=== PATIENT | female | born 1985 | race Caucasian/White ===

== ENCOUNTER → 2017-08-17 | Outpatient (CLI) | payer BC | END | disposition home or self-care (01) | LOC: C.PAPS 12:08 | PROVIDERS: ATTEND Obstetrics & Gynecology | DX: Z01.419 Encounter for gynecological examination (general) (routine) without abnormal findings (principal); Z11.51 Encounter for screening for human papillomavirus (HPV) ==

== ENCOUNTER 2019-02-04 13:20 | Inpatient (IN) ==
[2019-02-04] MEDS ORDERED: OXYTOCIN 30 UNITS/500 ML BAG IV PRN (13:45)
--- NOTE | 2019-02-04 13:50 | History & Physical Report ---
Date of Service February 04, 2019 Assessment & Plan (1) Normal labor: active labor, likely mec stained fluid--unknown when ruptured. borderline BP and +1 protein in urine, will get labs. Epidural on demand. Anticipate . Will monitor closely. History of Present Illness Chief Complaint: contractions Primary Care Provider: NO PCP Patient is a 33yowf with iup at 37 5/7 weeks who presents to labor and delivery complaining of contractions. notes no lof/vb. +fm. complicated need for echo secondary to poor views on anatomy ultrasound (normal), rh negative. also complicated by persistent proteus positive urine. Always asymptomatic and w/u by urology negative. Hx of pcos. nl 2 hr gtt at 16 and 28 weeks. Recently had some borderline elevated pressures in the office. labs--A-/ab-/ri/rprnr/hepb-/hiv-/gc/ct-/cf/sma -/ panorama low risk/ gbs neg. Allergies Allergy/AdvReac Type Severity Reaction Status Date / Time No Known Drug Allergies Allergy Verified 01/30/19 13:24 Home Medications Home Medications Medication Instructions Recorded Confirmed Type pediatric multivitamin chewable 1 tab PO DAILY 11/29/18 02/04/19 History tablet Patient History Medical History Obesity PCOS (polycystic ovarian syndrome) History of irregular menstrual cycles Surgical History S/P wisdom tooth extraction Family History Mother Breast cancer, Onset Age: 46 Father Kidney stones Social History Preferred Language: Bhutanese Communication Ability: Effective Level Designer Required: No Beliefs That Will Affect Care: None marital status: Current Living Situation: Spouse current occupational status: employed current occupation: [employer] Other Information That Helps Us Care for You: No Feels Safe at Home: Yes Smoking Status: Never smoker Hx Alcohol Use: No Hx Substance Use: No Childhood Exposure to Second-Hand Smoke: No OB History g1--present [employer]ENTER [employer] History no abnl paps, no stds. Review of Systems All systems reviewed & are unremarkable except as noted in HPI & below Physical Exam Constitutional: WD/WN, vitals as above Gastrointestinal (Abdomen): obese, soft, nt, gravid Psychiatric: A+Ox3, euthymic affect Genitourinary: cx--4-5/100/-2, green tinged mucous on glove after exam, could feel membrane toco--difficult tracing efm--130s with mod variability, +accels, no decels Results & Data Vital Signs (Past 12 Hours) Vital Signs Temp Pulse Resp BP 02/04/19 13:42 117 H 145/104 H 02/04/19 13:28 36.7 C 99 H 20 138/93 Code Status & VTE Plan VTE Prophylaxis Plan VTE Prophylaxis will be ordered: No
[2019-02-04] MEDS: LACTATED RINGER'S 1,000 ML IV PRN ×3 (13:55→21:31)
[2019-02-04 14:08] LABS: Hematocrit (blood only) 36.2 % (37-47); Hemoglobin 12.8 g/dL (12.0-16.0); Mean Corpuscular Hemoglobin 29.6 pg (25-34); Mean Corpuscular Volume 83.8 fL (80-100); Mean Platelet Volume 11.6 fL (7.4-10.4); Platelet Count 173 K/uL (130-400); RDW Coefficient of Variation 13.7 % (11.5-14.5); RDW Standard Deviation 41.4 fL (36.4-46.3); Red Blood Count 4.32 M/uL (4.2-5.4); White Blood Count 11.02 K/uL (4.8-10.8)
[2019-02-04] MEDS ORDERED: ePHEDrine sulfate 50 MG/ML AMP ONE (14:12)
[2019-02-04] MEDS ORDERED: BUPIVACAINE 0.25% 30 ML VIAL ONE (14:12)
[2019-02-04] MEDS ORDERED: fentaNYL citrate 100 MCG/2 ML VIAL ONE (14:13)
[2019-02-04] MEDS ORDERED: fentaNYL 2MCG/ML ROPIV 1.25MG/ML 100 ML BAG EPI ONE (14:13)
[2019-02-04 14:22] LABS: Mean Corpuscular Hgb Conc 35.4 g/dL (32-36)
[2019-02-04 14:24] LABS: Albumin Level 2.5 gm/dl (3.4-5.0); BUN Creatinine Ratio 13.3 (10-20); Calcium 8.9 mg/dl (8.5-10.1); Creatinine Clr Calc Pharmacy 116.5 ml/min; Est GFR (African American) 118.4; Est GFR (Non-African American) 102.2; Potassium 4.3 mmol/L (3.5-5.1)
[2019-02-04 14:26] LABS: Albumin Globulin Ratio 0.6 (0.9-2); Bilirubin,Total 0.2 mg/dl (0.2-1); Total Protein 6.5 gm/dl (6.4-8.2)
--- NOTE | 2019-02-04 14:32 | Anesthesiology Consultation ---
Date of Service February 04, 2019 Assessment & Plan (1) Encounter for pre-operative examination: Chart Review Chart Review: Acceptable Risk for Labor Epidural Consults Requested none ASA ASA3 Proposed Anesthesia Anesthesia Type: Labor Epidural Risk / Benefits Reviewed With: PT / POA / Parent / Guardian, Accepts Plan and Informed Consent Obtained History Height/Weight Height: 5 ft 2 in Weight: 100.698 kg Allergies Allergy/AdvReac Type Severity Reaction Status Date / Time No Known Drug Allergies Allergy Verified 01/30/19 13:24 Medications Home Medications Medication Instructions Recorded Confirmed Last Taken pediatric multivitamin chewable 1 tab PO DAILY 11/29/18 02/04/19 02/03/19 12:00 tablet Active Medications Generic Name Dose Route Start Last Admin Trade Name Freq PRN Reason Stop Dose Admin Lactated Ringer's 1,000 mls @ 125 mls/hr 02/04/19 13:45 02/04/19 13:55 Lr IV 02/06/19 13:44 999 mls/hr .Q8H PRN Administration L&D Protocol Protocol Past Medical History Medical History Obesity PCOS (polycystic ovarian syndrome) History of irregular menstrual cycles Exercise / Class Metabolic Activity II 4-5 Yardwork/Stairs/Walk up hill Past Family History Family History Mother Breast cancer, Onset Age: 46 Father Kidney stones Past Surgical History Surgical History S/P wisdom tooth extraction Past Anesthesia History No Hx of Anesthesia Complications and No Family Hx of Anesthesia Complications History of PONV No Hx of PONV and No Hx of Motion Sickness Social History Smoking Status: Never smoker Hx Alcohol Use: No Hx Substance Use: No Physical Exam Vital Signs Last Vital Signs Temp 98.1 F 02/04/19 13:28 Pulse 99 H 02/04/19 14:29 Resp 20 02/04/19 13:28 BP 128/78 02/04/19 14:27 Pulse Ox 99 02/04/19 14:29 ENMT Mouth: no dentition abnormality Thyromental Distance: > or= 3.5 Finger Breadths Mallampati Class: II Neck normal visual inspection Respiratory normal respiratory effort Auscultation: lungs clear to auscultation bilaterally Cardiovascular Rate/Rhythm: regular rate and regular rhythm Testing Laboratory Results 02/04/19 13:55 02/04/19 13:55
[2019-02-04] MEDS ORDERED: fentaNYL 2MCG/ML ROPIV 1.25MG/ML 100 ML BAG EPI PRN (14:33)
[2019-02-04] MEDS ORDERED: NALBUPHINE HCL INJ 10 MG/ML AMP IV PRN (14:33)
[2019-02-04] MEDS ORDERED: DiphenhydrAMINE HCL 50 MG/ML VIAL IV PRN (14:33)
[2019-02-04] MEDS ORDERED: ePHEDrine sulfate 50 MG/ML AMP IV PRN (14:33)
[2019-02-04] MEDS ORDERED: NALOXONE HCL 0.4 MG/1 ML VIAL/CARP IV PRN (14:33)
[2019-02-04] MEDS ORDERED: NALOXONE HCL 1 MG in SODIUM CHLORIDE 0.9% 1000ML 1,000 ML IV PRN (14:33)
[2019-02-04] MEDS ORDERED: ONDANSETRON INJ 2 MG/ML 2 ML VIAL IV PRN (14:33)
--- NOTE | 2019-02-04 16:30 | Labor Progress Brief Note ---
Date of Service February 04, 2019 Subjective comfortable after epidural Assessment & Plan (1) Normal labor: labs were all normal. Blood pressures for the most part are ok, will have an occasional 150/90. no s/s of pet. Continue current management. Physical Exam Constitutional: WD/WN, vitals as above Psychiatric: A+Ox3, euthymic affect Genitourinary: cx--6-7/100/-2 arom--thin green mec toco--q3-5 efm--135 with mod variability, accels present Results & Data Vital Signs (Past 12 Hours) Vital Signs Temp Pulse Resp BP Pulse Ox 02/04/19 16:24 95 H 152/94 H 100 02/04/19 16:19 109 H 99 02/04/19 16:14 94 H 99 02/04/19 16:09 100 H 100 02/04/19 16:08 93 H 143/84 H 02/04/19 16:04 107 H 100 02/04/19 15:59 101 H 99 02/04/19 15:54 96 H 130/79 100 02/04/19 15:49 92 H 100 02/04/19 15:44 97 H 100 02/04/19 15:39 94 H 127/73 100 02/04/19 15:34 104 H 100 02/04/19 15:29 104 H 100 02/04/19 15:24 110 H 100 02/04/19 15:23 101 H 111/59 L 02/04/19 15:19 108 H 100 02/04/19 15:14 118 H 100 02/04/19 15:09 97 H 100 02/04/19 15:06 98 H 125/66 02/04/19 15:04 110 H 100 02/04/19 15:03 36.9 C 20 02/04/19 15:00 18 02/04/19 14:59 113 H 129/67 99 02/04/19 14:57 107 H 18 137/70 02/04/19 14:55 109 H 131/67 02/04/19 14:54 115 H 99 02/04/19 14:53 99 H 133/74 02/04/19 14:52 96 H 20 145/75 H 02/04/19 14:49 95 H 99 02/04/19 14:44 101 H 99 02/04/19 14:39 101 H 100 10/05/19 14:34 105 H 95 02/04/19 14:29 99 H 99 02/04/19 14:27 87 128/78 02/04/19 14:24 86 100 02/04/19 14:19 91 H 100 02/04/19 14:01 101 H 137/102 H 02/04/19 13:50 95 H 141/92 H 02/04/19 13:42 117 H 145/104 H 02/04/19 13:28 36.7 C 99 H 20 138/93
--- NOTE | 2019-02-04 20:20 | Labor Progress Brief Note ---
Date of Service February 04, 2019 Subjective comfortable, no pressure Assessment & Plan (1) Normal labor: labor down for a bit and then at 9 will empty bladder and start pushing. fetus category one and reassuring. Physical Exam Constitutional: WD/WN, vitals as above Psychiatric: A+Ox3, euthymic affect Genitourinary: cx--c/c/-1-0 toco--q2-3min efm--140s with mod variability, accels present, no decels Results & Data Vital Signs (Past 12 Hours) Vital Signs Temp Pulse Resp BP Pulse Ox 02/04/19 20:14 110 H 99 02/04/19 20:09 118 H 99 02/04/19 20:08 105 H 137/82 02/04/19 20:04 112 H 98 02/04/19 19:59 103 H 100 02/04/19 19:54 120 H 100 02/04/19 19:53 98 H 138/80 02/04/19 19:49 101 H 100 02/04/19 19:44 100 H 100 02/04/19 19:39 100 H 100 02/04/19 19:38 102 H 147/89 H 02/04/19 19:34 116 H 100 02/04/19 19:29 110 H 99 02/04/19 19:24 101 H 98 02/04/19 19:23 103 H 136/82 02/04/19 19:19 105 H 100 02/04/19 19:14 105 H 100 02/04/19 19:09 107 H 100 02/04/19 19:08 121 H 133/91 02/04/19 19:04 99 H 100 02/04/19 18:59 105 H 100 02/04/19 18:55 37.1 C 16 02/04/19 18:54 106 H 100 02/04/19 18:53 110 H 144/88 H 02/04/19 18:49 97 H 99 02/04/19 18:44 88 100 02/04/19 18:39 92 H 100 02/04/19 18:38 95 H 125/63 02/04/19 18:34 94 H 100 02/04/19 18:29 92 H 100 02/04/19 18:27 99 H 89 L 02/04/19 18:24 93 H 100 02/04/19 18:23 86 120/63 02/04/19 18:19 95 H 100 02/04/19 18:14 97 H 100 02/04/19 18:09 94 H 100 02/04/19 18:08 86 118/62 02/04/19 18:04 97 H 100 02/04/19 17:59 95 H 100 02/04/19 17:54 105 H 117/61 100 02/04/19 17:49 89 100 02/04/19 17:44 91 H 100 02/04/19 17:39 93 H 99 02/04/19 17:38 86 124/64 02/04/19 17:34 89 100 02/04/19 17:29 93 H 99 02/04/19 17:24 91 H 132/68 99 02/04/19 17:19 91 H 99 02/04/19 17:14 93 H 100 02/04/19 17:09 85 99 02/04/19 17:08 85 144/91 H 02/04/19 17:07 37.3 C 20 02/04/19 17:04 99 H 100 02/04/19 16:59 87 99 02/04/19 16:54 91 H 131/70 100 02/04/19 16:49 93 H 100 02/04/19 16:44 92 H 100 02/04/19 16:39 95 H 100 02/04/19 16:38 87 154/93 H 02/04/19 16:34 92 H 100 02/04/19 16:29 89 100 02/04/19 16:24 95 H 152/94 H 100 02/04/19 16:19 109 H 99 02/04/19 16:14 94 H 99 02/04/19 16:09 100 H 100 02/04/19 16:08 93 H 143/84 H 02/04/19 16:04 107 H 100 02/04/19 15:59 101 H 99 02/04/19 15:54 96 H 130/79 100 02/04/19 15:49 92 H 100 02/04/19 15:44 97 H 100 02/04/19 15:39 94 H 127/73 100 02/04/19 15:34 104 H 100 02/04/19 15:29 104 H 100 02/04/19 15:24 110 H 100 02/04/19 15:23 101 H 111/59 L 02/04/19 15:19 108 H 100 02/04/19 15:14 118 H 100 02/04/19 15:09 97 H 100 02/04/19 15:06 98 H 125/66 02/04/19 15:04 110 H 100 02/04/19 15:03 36.9 C 20 02/04/19 15:00 18 02/04/19 14:59 113 H 129/67 99 02/04/19 14:57 107 H 18 137/70 02/04/19 14:55 109 H 131/67 02/04/19 14:54 115 H 99 02/04/19 14:53 99 H 133/74 02/04/19 14:52 96 H 20 145/75 H 02/04/19 14:49 95 H 99 02/04/19 14:44 101 H 99 02/04/19 14:39 101 H 100 02/04/19 14:34 105 H 95 02/04/19 14:29 99 H 99 02/04/19 14:27 87 128/78 02/04/19 14:24 86 100 02/04/19 14:19 91 H 100 02/04/19 14:01 101 H 137/102 H 02/04/19 13:50 95 H 141/92 H 02/04/19 13:42 117 H 145/104 H 02/04/19 13:28 36.7 C 99 H 20 138/93
--- NOTE | 2019-02-04 22:57 | Communication Note ---
Date of Service: February 04, 2019 Multiple attempts at pushing. With first attempt had n/v and diarrhea. Resolved this and then attempted pushing again. FSE placed to better monitor th e fetus. AFter emesis and probably about 2 hours of laboring down, baby did not descend in the pelvis at all. With again attempting pushing, fht down in the 70s with slow return to baseline. Already have mec even prior to pushing. Pelvis feels small. I think this is going to be FTD and associated nrfht and have recommended proceeding with c/s. They are in agreement. fht now in 1700s with mod variability, and spontaneous accels. When not pushing, variables/decrease in HR has resolved. r/b/ of the c/s discussed with the patient including anesthesia, bleeding, transfusion, damage to surrounding structures, need for further surgery, injury to the baby. Questions asked and answered. Consent reviewed and sigend.
[2019-02-04] MEDS ORDERED: LACTATED RINGER'S 1,000 ML IV SCH ×2 (23:00→23:52)
--- NOTE | 2019-02-04 23:06 | Anesthesiology Consultation ---
Date of Service February 04, 2019 Assessment & Plan (1) Encounter for pre-operative examination: Chart Review Chart Review: Acceptable Risk for Surgery and Patient NOT seen in Pre Admission Testing Consults Requested none ASA [id number] Proposed Anesthesia Anesthesia Type: Labor Epidural (To be converted for emergent CS) Risk / Benefits Reviewed With: PT / POA / Parent / Guardian, Accepts Plan and Informed Consent Obtained History Surgery Operation Date: 02/04/19 22:50 Proposed Procedures p Section in LD - Ольга Blakely MD, FACOG Height/Weight Height: 5 ft 2 in Weight: 100.698 kg Allergies Allergy/AdvReac Type Severity Reaction Status Date / Time No Known Drug Allergies Allergy Verified 01/30/19 13:24 Medications Home Medications Medication Instructions Recorded Confirmed Last Taken pediatric multivitamin chewable 1 tab PO DAILY 11/29/18 02/04/19 02/03/19 12:00 tablet Active Medications Generic Name Dose Route Start Last Admin Trade Name Freq PRN Reason Stop Dose Admin Lactated Ringer's 1,000 mls @ 125 mls/hr 02/04/19 13:45 02/04/19 22:30 Lr IV 02/06/19 13:44 125 mls/hr .Q8H PRN Infusion L&D Protocol Protocol Ondansetron HCl 4 mg 02/04/19 14:33 02/04/19 22:06 Zofran IV 02/05/19 14:32 4 mg Q6H PRN Administration Nausea And Vomiting NPO Date Last Intake of Fluids: 02/04/19 Time Last Intake of Fluids: 21:00 Date Last Intake of Solids: 02/04/19 Time Last Intake of Solids: 07:00 Past Medical History Medical History Obesity PCOS (polycystic ovarian syndrome) History of irregular menstrual cycles Exercise / Class Metabolic Activity II 4-5 Yardwork/Stairs/Walk up hill Past Family History Family History Mother Breast cancer, Onset Age: 46 Father Kidney stones Past Surgical History Surgical History S/P wisdom tooth extraction Past Anesthesia History No Hx of Anesthesia Complications and No Family Hx of Anesthesia Complications History of PONV No Hx of PONV and No Hx of Motion Sickness Social History Smoking Status: Never smoker Hx Alcohol Use: No Hx Substance Use: No Physical Exam Vital Signs Last Vital Signs Temp 37.3 C 02/04/19 21:00 Pulse 122 H 02/04/19 23:00 Resp 16 02/04/19 21:00 BP 125/65 02/04/19 22:54 Pulse Ox 100 02/04/19 23:00 Constitutional + obese gravid uterus ENMT Mouth: no TMJ abnormality, no dentition abnormality and oral opening not small Thyromental Distance: > or= 3.5 Finger Breadths Mallampati Class: III Neck normal visual inspection; neck extension not limited Respiratory normal respiratory effort Auscultation: lungs clear to auscultation bilaterally Cardiovascular Rate/Rhythm: regular rate and regular rhythm Heart Sounds: no murmur Neurologic moves all extremities Psychiatric Orientation: alert and oriented x 3 Testing Laboratory Results 02/04/19 13:55 02/04/19 13:55
[2019-02-04] MEDS ORDERED: CITRIC ACID/SODIUM CITRATE 15 ML UDC PO ONE (23:15)
[2019-02-04] MEDS ORDERED: MoRPHine SULFATE PF 1 MG/ML 10 ML AMP/VIAL ONE (23:27)
[2019-02-04] MEDS ORDERED: LIDOCAINE/EPINEPHRINE 2% 1:200,000 20 ML SDV ONE (23:29)
[2019-02-04] MEDS ORDERED: OXYTOCIN 10 UNITS/ML VIAL ONE (23:29)
[2019-02-04] MEDS ORDERED: CEFAZOLIN 3000MG 65 ML IV ONE (23:30)
[2019-02-05] MEDS ORDERED: ONDANSETRON INJ 2 MG/ML 2 ML VIAL ONE (00:09)
--- NOTE | 2019-02-05 00:29 | Post Operative Brief Note ---
PG Immediate Post Op with CF Date of Surgery February 05, 2019 Pre & Post Diagnosis Operation Date: 02/04/19 22:50 Pre-Op Diagnosis: 1. IUP at 37.5 weeks gestation 2. Thin meconium fluid 3. Non reassuring heart tones 4. Failure to descend Post-Op Diagnosis: Same Delivery of live female child at 2345 Procedure Operation Date: 02/04/19 22:50 Actual Procedures p Primary low transverse Section in LD(Bilateral) - Ольга Blakely MD, FACOG Surgeon Ольга Blakely MD, FACOG Member Of Technical Staff Tayla Glover RN Estimated Blood Loss 800 Findings Consistent with Post-Op Diagnosis Specimens Specimen Description: 1. Placenta- exam 2. Cord blood
[2019-02-05] MEDS ORDERED: ePHEDrine sulfate 50 MG/ML AMP IV PRN (00:36)
[2019-02-05] MEDS ORDERED: DiphenhydrAMINE HCL 50 MG/ML VIAL IV PRN ×2 (00:36→18:36)
[2019-02-05] MEDS ORDERED: MEPERIDINE HCL 25 MG/ML CARP IV PRN (00:36)
[2019-02-05] MEDS ORDERED: MoRPHine SULFATE PF 1 MG/ML 10 ML AMP/VIAL INT SPINAL ONE (00:36)
[2019-02-05] MEDS ORDERED: LACTATED RINGER'S 500 ML IV PRN (00:36)
[2019-02-05] MEDS ORDERED: NALOXONE HCL 0.4 MG/1 ML VIAL/CARP IV PRN (00:36)
[2019-02-05] MEDS ORDERED: NALBUPHINE HCL INJ 10 MG/ML AMP IV PRN (00:36)
[2019-02-05] MEDS ORDERED: NALOXONE HCL 1 MG in SODIUM CHLORIDE 0.9% 1000ML 1,000 ML IV PRN (00:36)
[2019-02-05] MEDS ORDERED: NALOXONE HCL 0.08 MG in SYRINGE 1.8 ML IV PRN (00:36)
[2019-02-05] MEDS ORDERED: SODIUM CHLORIDE 0.9% 1000ML 1,000 ML IV SCH (00:45)
[2019-02-05] MEDS ORDERED: NO NARCOTICS OR SEDATIVES SCH (00:45)
--- NOTE | 2019-02-05 00:46 | Anesthesiology Progress Note ---
Date of Service February 05, 2019 Anesthesia Post Procedure Vital Signs Vital Signs: Temp Pulse Resp BP Pulse Ox 02/05/19 00:44 84 99 02/05/19 00:41 92 H 99/56 L 02/05/19 00:39 100 H 99 02/05/19 00:35 95 H 101/49 L 02/05/19 00:34 98 H 99 02/04/19 23:15 107 H 100 02/04/19 23:10 110 H 100 02/04/19 23:09 110 H 149/95 H 02/04/19 23:05 126 H 100 02/04/19 23:00 100.0 F H 122 H 18 100 02/04/19 22:55 122 H 100 02/04/19 22:54 111 H 125/65 02/04/19 22:50 113 H 100 02/04/19 22:45 113 H 99 02/04/19 22:40 125 H 129/78 100 02/04/19 22:35 109 H 99 02/04/19 22:29 127 H 99 02/04/19 22:25 111 H 149/74 H 02/04/19 22:24 107 H 98 02/04/19 22:20 137 H 93 02/04/19 22:19 115 H 98 02/04/19 22:14 118 H 95 02/04/19 22:11 120 H 90 02/04/19 22:09 110 H 99 02/04/19 22:08 106 H 147/86 H 02/04/19 22:04 116 H 98 02/04/19 21:59 132 H 98 02/04/19 21:54 129 H 99 02/04/19 21:49 113 H 100 02/04/19 21:44 111 H 100 02/04/19 21:42 117 H 88 L 02/04/19 21:39 124 H 100 02/04/19 21:38 107 H 119/91 02/04/19 21:34 119 H 95 02/04/19 21:31 111 H 91 02/04/19 21:29 143 H 93 02/04/19 21:25 147 H 87 L 02/04/19 21:24 118 H 99 02/04/19 21:23 111 H 145/96 H 02/04/19 21:19 111 H 100 02/04/19 21:14 111 H 100 02/04/19 21:09 128 H 100 02/04/19 21:08 100 H 140/84 02/04/19 21:04 107 H 98 02/04/19 21:00 99.1 F 16 02/04/19 20:59 105 H 98 02/04/19 20:54 110 H 99 02/04/19 20:53 103 H 141/85 H 02/04/19 20:49 104 H 99 02/04/19 20:44 113 H 99 02/04/19 20:39 117 H 137/83 99 02/04/19 20:34 105 H 98 02/04/19 20:29 109 H 99 02/04/19 20:24 118 H 132/76 99 02/04/19 20:19 113 H 100 02/04/19 20:14 110 H 99 02/04/19 20:09 118 H 99 02/04/19 20:08 105 H 137/82 02/04/19 20:04 112 H 98 02/04/19 19:59 103 H 16 100 02/04/19 19:54 120 H 100 02/04/19 19:53 98 H 138/80 02/04/19 19:49 101 H 100 02/04/19 19:44 100 H 100 02/04/19 19:39 100 H 100 02/04/19 19:38 102 H 147/89 H 02/04/19 19:34 116 H 100 02/04/19 19:29 110 H 99 02/04/19 19:24 101 H 98 02/04/19 19:23 103 H 136/82 02/04/19 19:19 105 H 100 02/04/19 19:14 105 H 100 02/04/19 19:09 107 H 100 02/04/19 19:08 121 H 133/91 02/04/19 19:04 99 H 100 02/04/19 18:59 105 H 100 02/04/19 18:55 98.8 F 16 02/04/19 18:54 106 H 100 02/04/19 18:53 110 H 144/88 H 02/04/19 18:49 97 H 99 02/04/19 18:44 88 100 02/04/19 18:39 92 H 100 02/04/19 18:38 95 H 125/63 02/04/19 18:34 94 H 100 10/05/19 18:29 92 H 100 02/04/19 18:27 99 H 89 L 02/04/19 18:24 93 H 100 02/04/19 18:23 86 120/63 02/04/19 18:19 95 H 100 02/04/19 18:14 97 H 100 02/04/19 18:09 94 H 100 02/04/19 18:08 86 118/62 02/04/19 18:04 97 H 100 02/04/19 17:59 95 H 16 100 02/04/19 17:54 105 H 117/61 100 02/04/19 17:49 89 100 02/04/19 17:44 91 H 100 02/04/19 17:39 93 H 99 02/04/19 17:38 86 124/64 02/04/19 17:34 89 100 02/04/19 17:29 93 H 99 02/04/19 17:24 91 H 132/68 99 02/04/19 17:19 91 H 99 02/04/19 17:14 93 H 100 02/04/19 17:09 85 99 02/04/19 17:08 85 144/91 H 02/04/19 17:07 99.1 F 20 02/04/19 17:04 99 H 100 02/04/19 16:59 87 99 02/04/19 16:54 91 H 131/70 100 02/04/19 16:49 93 H 100 02/04/19 16:44 92 H 100 02/04/19 16:39 95 H 100 02/04/19 16:38 87 154/93 H 02/04/19 16:34 92 H 100 02/04/19 16:29 89 100 02/04/19 16:24 95 H 152/94 H 100 02/04/19 16:19 109 H 99 02/04/19 16:14 94 H 99 02/04/19 16:09 100 H 100 02/04/19 16:08 93 H 143/84 H 02/04/19 16:04 107 H 100 02/04/19 15:59 101 H 16 99 02/04/19 15:54 96 H 130/79 100 02/04/19 15:49 92 H 100 02/04/19 15:44 97 H 100 02/04/19 15:39 94 H 127/73 100 02/04/19 15:34 104 H 100 02/04/19 15:29 104 H 100 02/04/19 15:24 110 H 100 02/04/19 15:23 101 H 111/59 L 02/04/19 15:19 108 H 100 02/04/19 15:14 118 H 100 02/04/19 15:09 97 H 100 02/04/19 15:06 98 H 125/66 02/04/19 15:04 110 H 100 02/04/19 15:03 98.4 F 20 02/04/19 15:00 18 02/04/19 14:59 113 H 129/67 99 02/04/19 14:57 107 H 18 137/70 02/04/19 14:55 109 H 131/67 02/04/19 14:54 115 H 99 02/04/19 14:53 99 H 133/74 02/04/19 14:52 96 H 20 145/75 H 02/04/19 14:49 95 H 99 02/04/19 14:44 101 H 99 02/04/19 14:39 101 H 100 02/04/19 14:34 105 H 95 02/04/19 14:29 99 H 99 02/04/19 14:27 87 128/78 02/04/19 14:24 86 100 02/04/19 14:19 91 H 100 02/04/19 14:01 101 H 137/102 H 02/04/19 13:50 95 H 141/92 H 02/04/19 13:42 117 H 145/104 H 02/04/19 13:28 98.1 F 99 H 20 138/93 Pain Intensity Back: Pain Intensity: 5 Transfer of Care Handoff Completed per policy Notes Mental Status: alert / awake / arousable and participated in evaluation Patient Amnestic to Procedure: Yes Nausea / Vomiting: adequately controlled Pain: adequately controlled Airway Patency, RR, SpO2: stable & adequate BP & HR: stable & adequate Hydration State: stable & adequate Anesthetic Complications: no major complications apparent and Pt Satisfied with anesthetic care
[2019-02-05] MEDS ORDERED: LACTATED RINGER'S 1,000 ML IV SCH (01:12)
[2019-02-05] MEDS ORDERED: BENZOCAINE 20% AER SPR 82.5 GM CAN EXT PRN (01:12)
[2019-02-05] MEDS ORDERED: MAGNESIUM HYDROXIDE SUSP 30 ML UDC PO PRN (01:12)
[2019-02-05] MEDS ORDERED: DIPHTHERIA/TETANUS/PERTUSSIS 0.5 ML SYR/VIAL IM ONE (01:12)
[2019-02-05] MEDS ORDERED: SENNA 8.6 MG TAB PO PRN (01:12)
[2019-02-05] MEDS ORDERED: SUPERCREAM 0.870% 15 GM JAR EXT PRN (01:12)
[2019-02-05] MEDS ORDERED: HYDROCORTISONE ACETATE 25 MG SUPP PR PRN (01:12)
[2019-02-05] MEDS: OXYTOCIN 20 UNITS in LACTATED RINGER'S 1,000 ML IV SCH ×2 (01:33→09:47)
[2019-02-05] MEDS: KETOROLAC 30 MG/ML VIAL IV PRN ×2 (01:43→16:59)
--- NOTE | 2019-02-05 02:40 | Operative Report ---
DATE OF OPERATION: 02/04/2019 PREOPERATIVE DIAGNOSES: 1. Intrauterine at 37 and 5/7 weeks. 2. Thin meconium. 3. Nonreassuring heart testing. 4. Failure to descend. POSTOPERATIVE DIAGNOSES: 1. Intrauterine at 37 and 5/7 weeks. 2. Thin meconium. 3. Nonreassuring heart testing. 4. Failure to descend. PROCEDURE: Primary low transverse section. SURGEON: Ольга Blakely MD TECHNOLOGY APPLICATIONS TEACHER: Tayla Glover RN ANESTHESIA: Epidural. ESTIMATED BLOOD LOSS: 800 mL. FLUIDS: 1800 mL. URINE OUTPUT: 100 mL of concentrated dark urine drained from the bladder at the end of the procedure. INDICATIONS: This patient is a 1, para 0 who presented at 37 and 5/7 weeks with spontaneous rupture of membranes in active labor. There was thin green meconium noted. She eventually progressed to complete-complete and -1 to 0 station. She pushed, but the baby did not tolerate pushing. FINDINGS: Viable female in occiput anterior presentation, wedged into the pelvis. Apgars 9 and 9. Normal uterus, tubes and ovaries were noted bilaterally. COMPLICATIONS: None. DRAINS: Power. DISPOSITION: To recovery room in a stable condition. DESCRIPTION OF PROCEDURE: The patient was taken to the operating room where she was identified verbally and by bracelet. She was transferred to the operating table and placed in dorsal supine position with a leftward tilt. A Power catheter has already been placed. Her epidural was dosed up. She was prepped and draped in normal sterile fashion. Her anesthetic was tested and found to be adequate. A time-out was held, identifying correct patient, procedure, positioning and preoperative antibiotic. There were no concerns. A Pfannenstiel skin incision was made with a knife and taken down to the underlying layer of fascia with the knife and Bovie electrocautery. Bleeding was attended to with Bovie electrocautery. The fascia was incised in the midline with a knife and taken out laterally with scissors. The superior edge of the fascial incision was grasped, elevated and the underlying layer of rectus muscle was taken off bluntly and with scissors. In a similar fashion, the inferior edge of the fascial incision was grasped, elevated and the underlying layer of rectus muscle was taken off bluntly and with scissors. Bleeding of the rectus muscles was attended to with Bovie electrocautery. The rectus muscles were bluntly in the midline. The peritoneum was entered bluntly. This was taken superiorly and inferiorly with good visualization of the bladder sharply with scissors and then stretched with the wooling machine operator's fingers. We tried to place an Didier self-retaining retractor into the abdomen, but it kept popping out so bladder blade was placed. The vesicouterine peritoneum was identified, incised with scissors, taken out laterally with scissors and the bladder flap was created digitally. The bladder blade was replaced. Hysterotomy incision was made with the knife. This was entered with a snap with a thick green meconium noted. The wooling machine operator's hand was gently placed into the uterus. The head was wedged deep into the pelvis, but I was able to lift the baby up and through the hysterotomy incision. The nose and mouth were bulb suctioned. There was no nuchal cord. The rest of the infant was then delivered without difficulty. The immediately cried. The nose and mouth were bulb suctioned. The cord was clamped and cut. The infant was handed off to waiting sand temperer for drying and attention. Cord blood and gases were obtained. The placenta was manually extracted. The uterus was exteriorized and cleared of all clot and debris with moistened laparotomy sponges. The hysterotomy incision was finally identified after mistakenly pulling the external os up through the incision. The wooling machine operator's hand was placed into the uterus and the cervix was reduced and then the lower edge of the low transverse incision was identified with T clamps. The incision was then repaired in 2 layers, the first in a running locked layer and the second in an imbricating layer. Hemostasis was then noted to be good. The posterior cul-de-sac was cleared of all clot and debris. The hysterotomy incision was again inspected and found to be hemostatic. The uterus was reanteriorized. The hysterotomy incision was again inspected and found to be hemostatic. Some bleeding edges were attended to with Bovie electrocautery. The muscles were then reapproximated in the midline using interrupted sutures of 0 Vicryl. The fascia was reapproximated starting at the edges and meeting in the midline with 0 Vicryl. The subcuticular tissue was copiously irrigated. Bleeding was attended to with Bovie electrocautery. Several horizontal mattress sutures of 2-0 plain gut suture were used to close the space and the skin was closed with 4-0 subcuticular stitch of Vicryl. All sponge, lap and needle counts were correct x2. The patient tolerated the procedure well and was taken to recovery room in a stable condition. I attest to the content of the Intraoperative Record and any orders documented therein. Any exceptions are noted below. MTDD
[2019-02-05 06:38] LABS: Basophils # (auto) 0.01 K/uL (0-0.2); Basophils % (auto) 0.1 %; Hematocrit (blood only) 30.6 % (37-47); Hemoglobin 10.4 g/dL (12.0-16.0); Immature Granulocytes # (auto) 0.04 K/uL (0.00-0.02); Immature Granulocytes % (auto) 0.3 %; Lymphocytes # (auto) 1.37 K/uL (1.2-3.4); Lymphocytes % (auto) 8.6 %; Mean Corpuscular Hemoglobin 28.7 pg (25-34); Mean Corpuscular Volume 84.5 fL (80-100); Mean Platelet Volume 11.9 fL (7.4-10.4); Monocytes # (auto) 1.46 K/uL (0.11-0.59); Monocytes % (auto) 9.2 %; Neutrophils # (auto) 13.05 K/uL (1.4-6.5); Neutrophils % (auto) 81.8 %; Platelet Count 158 K/uL (130-400); RDW Coefficient of Variation 13.9 % (11.5-14.5); RDW Standard Deviation 42.4 fL (36.4-46.3); Red Blood Count 3.62 M/uL (4.2-5.4); White Blood Count 15.93 K/uL (4.8-10.8)
[2019-02-05] MEDS: DOCUSATE SODIUM 100 MG CAP PO SCH ×2 (08:44→20:11)
[2019-02-05] MEDS: SIMETHICONE 80 MG CHEW PO SCH ×4 (08:44→20:11)
[2019-02-05] MEDS: PRENATAL VITAMIN 1 TAB PO SCH (08:44)
[2019-02-05] MEDS: FERROUS SULFATE 325 MG TAB PO SCH (08:46)
[2019-02-05] MEDS ORDERED: PROMETHAZINE HCL 25 MG in SODIUM CHLORIDE 0.9% 50 ML IV PRN (18:36)
[2019-02-05] MEDS ORDERED: DC INTRASPINAL MORPHINE SCH (18:36)
[2019-02-05] MEDS ORDERED: OXYCODONE/ACETAMINOPHEN 5mg/325mg TAB PO PRN (18:36)
[2019-02-05] MEDS ORDERED: KETOROLAC 30 MG/ML VIAL IV PRN (18:36)
[2019-02-05] MEDS ORDERED: ONDANSETRON INJ 2 MG/ML 2 ML VIAL IV PRN (18:36)
[2019-02-05] MEDS ORDERED: MEPERIDINE HCL 50 MG/ML CARP IV PRN (18:36)
[2019-02-06] MEDS: IBUPROFEN 600 MG TAB PO PRN ×3 (01:16→13:30)
--- NOTE | 2019-02-06 06:14 | Obstetrical Progress Note ---
Date of Service February 06, 2019 Assessment & Plan (1) : 33 yo s/p C/S @ 37.5 wks -POD# 1 - GBS negative, Blood Type A- - Feels well today. Eating well, voiding well, ambulating well. - Pain well controlled w/ Motrin. - Routine post operative care - After discharge will have [address] Blakely. Supervising Physician Co-Signing Physician Notes Resident Physician Supervision Note: I interviewed and examined the patient. Discussed with Dr. Linn and agree with findings and plan as documented in the note. Any exceptions or clarifications are listed here: Doing well. Continue routine postop day 1 care. Documented By: Ольга Blakely MD, FACOG Subjective Doing well this morning with no questions or concerns. Review of Systems Review of Systems: Denies fever, chills, sweats Denies shortness of breath, difficulty breathing, chest pain, palpitations, chest pressure. Denies breast pain. Denies dysuria. Denies headache. Physical Exam Physical Exam: General: Alert, oriented. No acute distress. Cardiac: Regular rate and rhythm, no murmurs/rubs/gallops. Respiratory: Clear to auscultation anterior and posteriorly, no wheezes /rales/rhonchi. No increased work of breathing. Symmetrical chest rise. No respiratory distress. Abdomen: Soft, nontender, nondistended. Bowel sounds present. Uterus: Uterine fundus firm, at the umbilicus. Lower Extremities: No lower extremity edema or swelling. No deep calf pain. Sanchez's negative bilaterally. surgical bandage intact, clean, dry. Results & Data Vital Signs (Past 12 Hours) Vital Signs Temp Pulse Resp BP Pulse Ox 02/05/19 23:42 37.1 C 100 H 18 133/87 97 02/05/19 19:44 36.9 C 101 H 18 127/81 97 PG Care Time/CCT Total # of Minutes Spent Total Time Spent with Patient: Total time spent is greater than 50% in coordination of care (as documented) at patient's floor/unit and/or counseling patient: Resident Activity Tracking Resident Involvement: Resident Care Provided Care Provided: Adult Hospital Medicine
[2019-02-06 06:36] LABS: Hematocrit (blood only) 30.4 % (37-47); Hemoglobin 10.3 g/dL (12.0-16.0)
[2019-02-06] MEDS: SIMETHICONE 80 MG CHEW PO SCH ×3 (09:27→20:58)
[2019-02-06] MEDS: DOCUSATE SODIUM 100 MG CAP PO SCH ×2 (09:27→20:58)
[2019-02-06] MEDS: PRENATAL VITAMIN 1 TAB PO SCH (09:27)
[2019-02-06] MEDS: FERROUS SULFATE 325 MG TAB PO SCH (09:28)
[2019-02-06] MEDS ORDERED: bisacodyL 5 MG TABEC PO SCH (20:00)
[2019-02-07] MEDS: IBUPROFEN 600 MG TAB PO PRN ×3 (02:47→18:04)
--- NOTE | 2019-02-07 05:56 | Obstetrical Progress Note ---
Date of Service February 07, 2019 Assessment & Plan (1) : 33 yo s/p C/S @ 37.5 wks -POD# 3 - GBS negative, Blood Type A- - Feels well today. Eating well, voiding well, ambulating well. - Pain well controlled w/ Motrin. - Routine post operative care - After discharge will have [address] Blakely. Supervising Physician Co-Signing Physician Notes I have reviewed the resident's note and examined the patient myself, and agree with the note above. Subjective Doing well this morning, she had no questions this morning. She said that she w ould like to stay one more night if possible to feel more comfortable. Review of Systems Review of Systems: Denies fever, chills, sweats Denies shortness of breath, difficulty breathing, chest pain, palpitations, chest pressure. Denies breast pain. Denies dysuria. Denies headache. Physical Exam Physical Exam: General: Alert, oriented. No acute distress. Cardiac: Regular rate and rhythm, no murmurs/rubs/gallops. Respiratory: Clear to auscultation anterior and posteriorly, no wheezes/rales/rhonchi. No increased work of breathing. Symmetrical chest rise. No respiratory distress. Abdomen: Soft, nontender, nondistended. Bowel sounds present. Uterus: Uterine fundus firm, palpable 1 cm below umbilicus. Lower Extremities: No lower extremity edema or swelling. No deep calf pain. Sanchez's negative bilaterally. surgical incision intact, clean, dry. No warmth, erythema, discharge, or dehiscence. Results & Data Vital Signs (Past 12 Hours) Vital Signs Temp Pulse Resp BP Pulse Ox 02/07/19 00:00 36.9 C 101 H 18 137/91 99 02/06/19 20:10 36.9 C 100 H 18 133/88 100 PG Care Time/CCT Total # of Minutes Spent Total Time Spent with Patient: Total time spent is greater than 50% in coordination of care (as documented) at patient's floor/unit and/or counseling patient: Resident Activity Tracking Resident Involvement: Resident Care Provided Care Provided: Adult Hospital Medicine
[2019-02-07] MEDS ORDERED: bisacodyL 10 MG SUPP PR PRN (07:00)
[2019-02-07] MEDS: PRENATAL VITAMIN 1 TAB PO SCH (08:39)
[2019-02-07] MEDS: FERROUS SULFATE 325 MG TAB PO SCH (08:39)
[2019-02-07] MEDS: SIMETHICONE 80 MG CHEW PO SCH ×4 (08:39→17:07)
[2019-02-07] MEDS: DOCUSATE SODIUM 100 MG CAP PO SCH (08:39)
--- NOTE | 2019-02-08 16:11 | Discharge Summary ---
ADMISSION DIAGNOSES: 1. Intrauterine at 37 and 5/7 weeks. 2. Active labor. 3. Meconium. DISCHARGE DIAGNOSES: Same plus failure to descend and nonreassuring heart testing. PROCEDURES: Primary low transverse section. HISTORY OF PRESENT ILLNESS: The patient is a 33-year-old white female 1, para 0 with an intrauterine at 37 and 5/7 weeks who presents to labor and delivery complaining of contractions. She notes no leakage of fluid or vaginal bleeding and good movement. Her is complicated by need for echo secondary to poor fetus on anatomy ultrasound which was normal. She is Rh negative. also complicated by persistent proteus positive urine. Always asymptomatic and work up by urology was negative. For the rest of the patient's detailed history, please see her history and physical. ASSESSMENT: This is a patient who is in active labor. She has likely thin green stained meconium fluid. Her blood pressures are borderline and she has +1 protein. HOSPITAL COURSE: The patient was admitted. She had preeclampsia labs which were negative. Her pressures continued to be borderline, but not greater than 150/90. She underwent an amniotomy for green meconium stained fluid. The patient progressed spontaneously to complete-complete and +1 station. She labored down for over 2 hours and then when she began to push unfortunately the fetus had significant deep variables with late return to baseline and after not descending after 2 hours of laboring down I was concerned for failure to descend and CPD. section was called. The patient underwent a primary low transverse section without difficulty. Estimated blood loss: 800 mL FINDINGS: Viable female infant in occiput anterior presentation, wedged into the pelvis. Apgars of 9 and 9. Normal uterus, tubes, and ovaries were noted bilaterally. The patient's course was uncomplicated. She tolerated a regular diet, ambulated without difficulty, voided after the removal of her Power catheter and tolerated a regular diet. She was discharged home with Percocet and Motrin for pain on postoperative day 3. Her discharge H&H were 10.3 and 30.4.
== END 2019-02-07 19:10 | disposition home or self-care (01) | DRG 788 ==
LOC: OPB 13:20 → 4S1 13:21 → 4S2 02-05 03:19

== ENCOUNTER 2021-05-26 10:30 | Inpatient (IN) ==
--- NOTE | 2021-05-26 11:26 | History & Physical Report ---
Date of Service May 26, 2021 Assessment & Plan (1) Elevated blood pressure reading: Plan: 35 year old at 38 weeks 2 days coming in from the office for elevated BP and RUQ abdominal pain. -Ordered CBC, CMP, Urine protein/creatinine ratio. -r/o Preeclampsia w/ possible hepatic involvement vs MSK pain. -Continue to monitor vital signs, symptoms, heart monitoring. (2) RUQ abdominal pain: History of Present Illness Primary Care Provider: NO PCP 35 year old 38 weeks 2 days confirmed via LMP. Here for blood pressure check and complaint of RUQ pain. Patient was seen in the office earlier today with an elevated blood pressure of 142/90. Patient also had complaint of RUQ pain around her anterior inferior right ribs. Pain is a dull ache, worse with motion and deep breaths, without radiation. Denies any headaches, changes in vision, nausea, vomiting, fevers, chills. Complications with this include insulin controlled GDM, need for rhogam due to Rh negative. Patient attended OB appointments regularly. Patient takes home insulin and vitamin. Contractions: Sporadic. Fluid or blood: Denies Movement: Present Allergies Allergy/AdvReac Type Severity Reaction Status Date / Time No Known Drug Allergies Allergy NKDA Verified 05/26/21 09:33 Home Medications Medication Instructions Recorded Confirmed Type prenat.vits,venessa,lpr-[id number]-[id number] 1 tab PO DAILY 10/21/20 05/26/21 History acetone (urine) test (Ketone Urine #50 ea 01/13/21 05/26/21 Rx Test) blood-glucose meter (OneTouch #1 ea 01/13/21 05/26/21 Rx Verio Flex meter) lancets 33 gauge (OneTouch Delica #150 ea 01/13/21 05/26/21 Rx Plus Lancet) blood sugar diagnostic (OneTouch #400 ea 03/26/21 05/26/21 Rx Verio test strips) pen needle, diabetic 32 gauge x #100 ea 04/21/21 05/26/21 Rx 5/32" (BD Ultra-Fine Mary Pen Needle) insulin NPH isoph U-100 human 100 32 unit SUBCUT QPM 04/25/21 05/26/21 History unit/mL (3 mL) subcutaneous pen (Novolin N Flexpen) Patient History Medical History (Updated 05/26/21 @ 13:28 by León Castro MD) Elevated blood pressure reading Gestational diabetes Insulin controlled. Gestational proteinuria History of chicken pox History of irregular menstrual cycles Obesity PCOS (polycystic ovarian syndrome) Surgical History S/P section S/P wisdom tooth extraction Family History Mother Breast cancer, Onset Age: 46 Father Kidney stones Denies family history of Ovarian cancer Colorectal cancer Social History Smoking Status: Never smoker Second Hand Exposure: No; Hx Alcohol Use: No Hx Substance Use: No Preferred Language: Thai Communication Ability: Effective Visual Impairment: No Limitations Hearing Ability: Normal Refrigeration Technician Required: No Beliefs That Will Affect Care: None marital status: marital status details: Rian Alvarez(34) [phone] Current Living Situation: Spouse and Family Current Living Situation Comment: Rian Quach [address] current occupational status: employed current occupation: [employer] Other Information That Helps Us Care for You: No Feels Safe at Home: Yes Childhood Exposure to Second-Hand Smoke: No Assistive Devices: None OB History Previous 02/18 due to arrest of decent at 37 weeks. Review of Systems As per HPI. Physical Exam Physical Exam: General: Alert, oriented. No acute distress. Cardiac: Regular rate and rhythm, no murmurs/rubs/gallops. Respiratory: Clear to auscultation bilaterally a/p, no wheezes/rales/rhonchi. No increased work of breathing. Symmetrical chest rise. No respiratory distress. Abdominal: BS+, tender to palpation at RUQ, no rebound tenderness or guarding. Lower Extremities: No lower extremity edema or swelling. No deep calf pain. Sanchez's negative bilaterally Baseline: 160 Variability: Mild Accelerations: Few present. Decelerations: Not present. Results & Data ([facility]) Vital Signs (Past 12 Hours) Vital Signs Temp Pulse Resp BP 05/26/21 11:22 102 H 126/77 05/26/21 11:07 105 H 18 139/91 05/26/21 11:03 37.1 C 101 H 20 136/81 05/26/21 10:51 101 H 136/81 05/26/21 10:46 107 H 137/86 Laboratory Results - Blood type A negative - Antibody screen: Negative - Rubella Immune - VDRL/RPR: Non-reactive - Gonorrhea: Negative - Chlamydia: Negative - HIV: Negative - HbSAg: Negative - GBS: Negative - Glucose tolerance x 2: 165, 169 Supervising Physician Co-Signing Physician Notes Resident Physician Supervision Note: I interviewed and examined the patient. Discussed with Dr. Ross and agree with findings and plan as documented in the note. Any exceptions or clarifications are listed here: 35 y/o at 38 2/7 wga presents to L&D a fter being seen in clinic and having elevated BP reading. 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 BP was elevated 05/23 and waws seen on L&D where labs were reassuring and discharged home. BP check today in office was again elevated, she also noted soem RUQ soreness. Here has intermittent mild ranges and normal PET bloodwork, known elevated urine protein 05/08. Given these findings, would meet criteria for pre-eclampsia w/o SF and recommendation for delivery at this GA. Planned for CS next week but will move forward with CS today. Discussed indications, risks, benefits, alternatives with risks including infection, bleeding, injury to adjacent structures (bowel, bladder, ureters, blood vessels, nerves, baby), possible need for blood transfusion and/or life saving hysterectomy, VTE. Consent reviewed in detail w/ pt and signed after all questions answered to her satisfaction. Documented By: Danielle Rivera MD Resident Activity Tracking Resident Involvement: Resident Care Provided Care Provided: OB Delivery
[2021-05-26 11:45] LABS: Hematocrit (blood only) 37.5 % (37-47); Mean Corpuscular Hemoglobin 29.7 pg (25-34); Mean Corpuscular Hgb Conc 34.7 g/dL (32-36); Mean Corpuscular Volume 85.6 fL (80-100); Mean Platelet Volume 12.6 fL (7.4-10.4); Platelet Count 147 K/uL (130-400); RDW Standard Deviation 43.3 fL (36.4-46.3); Red Blood Count 4.38 M/uL (4.2-5.4); White Blood Count 7.91 K/uL (4.8-10.8)
[2021-05-26 12:05] LABS: Albumin Level 3.2 gm/dl (3.4-5.0); Bilirubin,Total 0.3 mg/dl (0.2-1.0); Calcium 9.1 mg/dl (8.5-10.1); Creatinine Clr Calc Pharmacy 149.4 ml/min; Est GFR (African American) 139.4 ml/min; Est GFR (Non-African American) 120.3 ml/min; Globulin 3.1 gm/dl (2.5-4.0); Potassium 4.1 mmol/L (3.5-5.1); Total Protein 6.3 gm/dl (6.0-8.3)
--- NOTE | 2021-05-26 13:28 | Anesthesiology Consultation ---
Date of Service May 26, 2021 Assessment & Plan (1) Encounter for pre-operative examination: Chart Review Chart Review: Acceptable Risk for Surgery History Height/Weight Height: 5 ft 2 in Weight: 97.976 kg Allergies Allergy/AdvReac Type Severity Reaction Status Date / Time No Known Drug Allergies Allergy NKDA Verified 05/26/21 09:33 Medications Home Medications Medication Instructions Recorded Confirmed Last Taken prenat.vits,venessa,blc-wrto-ordvs 1 tab PO DAILY 10/21/20 05/26/21 05/25/21 acetone (urine) test (Ketone Urine #50 ea 01/13/21 05/26/21 Unknown Test) blood-glucose meter (OneTouch #1 ea 01/13/21 05/26/21 Unknown Verio Flex meter) lancets 33 gauge (OneTouch Delica #150 ea 01/13/21 05/26/21 Unknown Plus Lancet) blood sugar diagnostic (OneTouch #400 ea 03/26/21 05/26/21 Unknown Verio test strips) pen needle, diabetic 32 gauge x #100 ea 04/21/21 05/26/21 Unknown /32" (BD Ultra-Fine Mary Pen Needle) insulin NPH isoph U-100 human 100 32 unit SUBCUT QPM 04/25/21 05/26/21 05/25/21 21:30 unit/mL (3 mL) subcutaneous pen (Novolin N Flexpen) Past Medical History Medical History (Updated 05/26/21 @ 13:28 by León Castro MD) Elevated blood pressure reading Gestational diabetes Insulin controlled. Gestational proteinuria History of chicken pox History of irregular menstrual cycles Obesity PCOS (polycystic ovarian syndrome) Past Family History Family History Mother Breast cancer, Onset Age: 46 Father Kidney stones Denies family history of Ovarian cancer Colorectal cancer Past Surgical History Surgical History S/P section S/P wisdom tooth extraction Social History Smoking Status: Never smoker Hx Alcohol Use: No Hx Substance Use: No substance use type: does not use Physical Exam Vital Signs Last Vital Signs Temp 37.1 C 05/26/21 11:03 Pulse 104 H 05/26/21 13:22 Resp 18 05/26/21 11:07 BP 158/90 H 05/26/21 13:22 Testing Laboratory Results 05/26/21 11:33 05/26/21 11:33
[2021-05-26] MEDS ORDERED: CITRIC ACID/SODIUM CITRATE 15 ML UDC PO ONE (13:45)
[2021-05-26] MEDS ORDERED: MoRPHine SULFATE PF 1 MG/ML 10 ML AMP/VIAL ONE (13:50)
[2021-05-26] MEDS ORDERED: LACTATED RINGER'S 1,000 ML IV ONE (14:34)
[2021-05-26 14:55] LABS: Creatinine Urine Random 186.4 mg/dl; Protein Creatinine Ratio Urine 0.5 (0-0.2); Total Protein Urine Random 100.4 mg/dl (0-11.9)
[2021-05-26] MEDS: LACTATED RINGER'S 1,000 ML IV SCH (15:17)
[2021-05-26] MEDS ORDERED: diphenhydrAMINE 50 MG/ML VIAL IV PRN (18:02)
[2021-05-26] MEDS ORDERED: PROMETHAZINE HCL 12.5 MG in SODIUM CHLORIDE 0.9% 50 ML IV PRN (18:02)
[2021-05-26] MEDS ORDERED: LACTATED RINGER'S 500 ML IV PRN (18:02)
[2021-05-26] MEDS ORDERED: NALOXONE HCL 0.4 MG/1 ML VIAL/CARP IV PRN (18:02)
[2021-05-26] MEDS ORDERED: NALOXONE HCL 1 MG in SODIUM CHLORIDE 0.9% 1000ML 1,000 ML IV PRN (18:02)
[2021-05-26] MEDS ORDERED: MoRPHine SULFATE 2 MG/ML CARP IV PRN (18:02)
[2021-05-26] MEDS ORDERED: NALBUPHINE HCL INJ 10 MG/ML AMP IV PRN (18:02)
[2021-05-26] MEDS ORDERED: NALOXONE HCL 0.08 MG in SYRINGE 1.8 ML IV PRN (18:02)
[2021-05-26] MEDS ORDERED: ePHEDrine sulfate 50 MG/ML AMP IV PRN (18:02)
[2021-05-26] MEDS ORDERED: ONDANSETRON INJ 2 MG/ML 2 ML VIAL IV PRN (18:02)
[2021-05-26] MEDS ORDERED: MoRPHine SULFATE PF 1 MG/ML 10 ML AMP/VIAL INT SPINAL ONE (18:02)
[2021-05-26] MEDS ORDERED: PROPOFOL IV EMULSION 10 MG/ML 20 ML VIAL IV ONE (18:11)
[2021-05-26] MEDS ORDERED: PHENYLEPHRINE 100MCG/ML 5ML SYR ONE (18:11)
[2021-05-26] MEDS ORDERED: METOCLOPRAMIDE HCL INJ 5 MG/ML 2 ML VIAL ONE (18:11)
[2021-05-26] MEDS ORDERED: ePHEDrine sulfate 50 MG/ML SYR ONE (18:11)
[2021-05-26] MEDS ORDERED: LIDOCAINE 2% MPF LOCAL 5 ML VIAL INFIL ONE (18:11)
[2021-05-26] MEDS ORDERED: OXYTOCIN 10 UNITS/ML 10ML VIAL ONE ×2 (18:11→19:00)
[2021-05-26] MEDS ORDERED: ONDANSETRON INJ 2 MG/ML 2 ML VIAL ONE (18:11)
[2021-05-26] MEDS ORDERED: SODIUM CHLORIDE 0.9% 1000ML 1,000 ML IV SCH (18:15)
[2021-05-26] MEDS ORDERED: DC INTRASPINAL MORPHINE SCH (18:15)
[2021-05-26] MEDS ORDERED: NO NARCOTICS OR SEDATIVES SCH (18:15)
[2021-05-26] MEDS ORDERED: DIPHTHERIA/TETANUS/PERTUSSIS 0.5 ML SYR/VIAL IM ONE (19:11)
[2021-05-26] MEDS ORDERED: SENNA 8.6 MG TAB PO PRN (19:11)
[2021-05-26] MEDS ORDERED: HYDROCORTISONE ACETATE 25 MG SUPP PR PRN (19:11)
[2021-05-26] MEDS ORDERED: BENZOCAINE 20% AER SPR 82.5 GM CAN EXT PRN (19:11)
[2021-05-26] MEDS ORDERED: MAGNESIUM HYDROXIDE SUSP 30 ML UDC PO PRN (19:11)
[2021-05-26] MEDS ORDERED: SUPERCREAM 0.870% 15 GM JAR EXT PRN (19:11)
--- NOTE | 2021-05-26 19:13 | Post Operative Brief Note ---
PG Immediate Post Op with CF Date of Surgery May 26, 2021 Pre & Post Diagnosis Operation Date: 05/26/21 13:45 Pre-Op Diagnosis: Intrauterine at 38 weeks. Previous . Pre-eclampsia without severe features. A2GDM. Rh neg Post-Op Diagnosis: Same. I identified the patient and participated in the time-out.: Yes Procedure Operation Date: 05/26/21 13:45 Actual Procedures p Repeat Low Transverse Section in OR#3 for live female infant at 1818. - Danielle Rivera MD Surgeon Danielle Rivera MD Condominium Manager Gustavo Estimated Blood Loss 500 Findings Consistent with Post-Op Diagnosis Moderate bladder adhesions to uterus, normal appearing bilateral fallopian tubes and ovaries. Viable female with APGARs of 8 and 9 Specimens Specimen Description: A. Placenta B. Cord blood Drains Power Catheter (Inserted 16fr at 1750. Draining clear yellow) Anesthesia Type Spinal Complications none Disposition Accompanied Patient To Recovery: Yes Disposition: L&D
[2021-05-26] MEDS ORDERED: LACTATED RINGER'S 1,000 ML IV SCH (19:15)
--- NOTE | 2021-05-26 19:16 | Operative Report ---
PG Post Operative Report Pre & Post Diagnosis Operation Date: 05/26/21 13:45 Pre-Op Diagnosis: Intrauterine at 38 weeks. Previous . Preclampsia without severe features. A2GDM. Post-Op Diagnosis: Same. I identified the patient and participated in the time-out.: Yes Procedure Operation Date: 05/26/21 13:45 Actual Procedures p Repeat Low Transverse Section in OR#3 for live female infant at 1818. - Danielle Rivera MD Surgeon Danielle Rivera MD Aeroplane Pilot MD Gustavo Estimated Blood Loss 500 Findings Consistent with Post-Op Diagnosis Moderate bladder adhesions to uterus and rectus adhesions, normal appearing bilateral fallopian tubes and ovaries. Viable female with APGARs of 8 and 9 Specimens A. Placenta B. Cord blood Drains Power draining clear urine Anesthesia Type Spinal Complications none Disposition Accompanied Patient To Recovery: Yes Disposition: L&D Indications 35 y/o at 38 2/7 wga presented to labor and delivery for elevated blood pressures. BP was elevated at 05/23 visit and was seen on L&D where labs and BP were reassuring and discharged home. BP check today in office was again mild range and she also noted some RUQ soreness so was sent to L&D for monitoring. On arrival, she had normal PET bloodwork in the setting of known elevated urine protein. During monitoring, she continued to have mild range blood pressures and met criteria for pre-eclampsia w/o severe features with her BPs and elevated urine protein. Given her GA, she was recommended for delivery. Description of Procedure The patient was taken to the operating room after consents were ensured. The patient was properly identified. Spinal anesthesia was obtained without difficulty. The patient was placed in a dorsal supine position with left lateral tilt, then prepped and draped in normal sterile fashion. Surgical time out was performed. Antibiotics were given for prophylaxis. Anesthesia was tested to ensure adequate surgical levels. Pfannenstiel skin incision was performed and carried down to the underlying fascia with a knife. The fascia was then nicked in the midline and extended laterally with pickups and Sanderson scissors. Superior portion of the fascia was grasped with Kochers x2 and elevated off the underlying rectus muscles using blunt dissection and scissors. Inferior portion of the fascia was then grasped with Adelaida clamps x2 and also elevated off the underlying muscles with blunt dissection and scissors. Midline was identified and the peritoneum was then entered sharply after dissecting rectus adhesions and extended to provide adequate room for delivery of baby. The hand was inserted into the abdomen, uterus was noted to have moderate amount of bladder adhesions. Bladder blade was inserted, bladder flap was created in the usual fashion and bladder was able to be dissected down after carefully taking down the adhesions. A low transverse uterine incision was made in the uterus and extended bluntly in a superior to inferior fashion. Amniotomy was made with clear fluid at the time of rupture. Fe kd head was grasped and elevated through the hysterotomy in an atraumatic fashion. The baby delivered in MELODY position, no nuchal cord. Remainder of the body delivered without incident. Nose and mouth were bulb suctioned on the surgical field. The cord was double clamped and cut, baby was handed off to awaiting pediatrics staff. Cord segment and blood were obtained. Placenta was then expressed from the uterus. The uterus was exteriorized. Several passes were made inside the uterus to remove the remaining membranes. Attention was then turned to the hysterotomy, which was then closed with a ru nning locked suture of 0 Vicryl on a CTX needle. An imbricating layer was then performed using 0-Monocryl. There was noted to be good hemostasis. The posterior cul-de-sac was then inspected and cleaned of clot and debris. The hysterotomy was again inspected and noted to be hemostatic. The uterus was returned to the abdomen. The right and left pericolic gutters were cleaned of all clot and debris. The hysterotomy was again noted to be hemostatic except a few spots on the lower uterien segment with ooze due to prior adhesions and these were made hemostatic w/ bovie and tom. Space of Retzius was noted to be hemostatic. The fascia was then closed with a running suture of 0 Vicryl on a CT1 needle. Subcutaneous tissue was copiously irrigated and noted to be hemostatic. Subcutaneous tissue was re-approximated using 2-0 plain gut. The skin was then closed with a running suture of 3-0 Monocryl in a subcuticular fashion. At termination of the procedure, the fundal pressure was applied and a moderate amount of lochia was expressed. Pressure dressing was applied to the patient. She tolerated the procedure well. All sponge, needle, instrument counts were correct x 2. I attest to the content of the Intraoperative Record and any orders documented therein. Any exceptions are noted below. OB Procedure Charges 14808
[2021-05-26] MEDS ORDERED: OXYTOCIN 20 UNITS in LACTATED RINGER'S 1,000 ML IV SCH (19:30)
--- NOTE | 2021-05-26 20:21 | Anesthesiology Progress Note ---
Date of Service May 26, 2021 Anesthesia Post Procedure Vital Signs Vital Signs: Temp Pulse Resp BP Pulse Ox 05/26/21 20:18 75 98 05/26/21 20:16 74 141/80 H 05/26/21 20:13 70 98 05/26/21 20:10 77 87 L 05/26/21 20:08 79 98 05/26/21 20:07 18 05/26/21 20:06 74 152/88 H 05/26/21 20:03 71 99 05/26/21 19:58 73 99 05/26/21 19:57 18 05/26/21 19:56 69 160/90 H 05/26/21 19:53 75 98 05/26/21 19:48 73 100 05/26/21 19:47 82 18 158/90 H 05/26/21 19:43 79 99 05/26/21 19:38 77 99 05/26/21 19:37 18 05/26/21 19:36 75 143/79 H 05/26/21 19:33 83 100 05/26/21 19:28 83 100 05/26/21 19:27 18 05/26/21 19:26 81 147/71 H 05/26/21 19:23 87 99 05/26/21 19:18 88 100 05/26/21 19:17 18 05/26/21 19:16 84 135/69 05/26/21 19:13 91 H 100 05/26/21 19:10 93 H 92 05/26/21 19:08 84 100 05/26/21 19:07 36.6 C 85 18 118/76 05/26/21 17:22 93 H 136/86 05/26/21 16:52 90 151/85 H 05/26/21 16:21 98 H 135/89 05/26/21 15:52 37.0 C 86 18 139/83 05/26/21 15:08 37.0 C 96 H 20 135/85 05/26/21 14:53 99 H 20 145/96 H 05/26/21 14:37 93 H 161/87 H 05/26/21 14:23 93 H 157/90 H 05/26/21 14:07 100 H 140/96 05/26/21 13:22 104 H 158/90 H 05/26/21 13:07 96 H 145/81 H 05/26/21 12:53 88 139/86 05/26/21 12:38 97 H 131/84 05/26/21 12:22 105 H 133/83 05/26/21 12:08 99 H 133/85 05/26/21 11:52 100 H 127/83 05/26/21 11:37 109 H 125/77 05/26/21 11:22 102 H 126/77 05/26/21 11:07 105 H 18 139/91 05/26/21 11:03 37.1 C 101 H 20 136/81 05/26/21 10:51 101 H 136/81 05/26/21 10:46 107 H 137/86 Transfer of Care Handoff Completed per policy Notes Mental Status: alert / awake / arousable Patient Amnestic to Procedure: Yes Nausea / Vomiting: adequately controlled Pain: adequately controlled Airway Patency, RR, SpO2: stable & adequate BP & HR: stable & adequate Hydration State: stable & adequate Neuraxial Anesthesia: was administered and sensory block is resolving Anesthetic Complications: no major complications apparent
[2021-05-26] MEDS: DOCUSATE SODIUM 100 MG CAP PO SCH (21:03)
[2021-05-26] MEDS: SIMETHICONE 80 MG CHEW PO SCH (21:03)
[2021-05-26] MEDS: KETOROLAC 30 MG/ML VIAL IV PRN (21:19)
[2021-05-27] MEDS: KETOROLAC 30 MG/ML VIAL IV PRN (05:26)
[2021-05-27] MEDS: LACTATED RINGER'S 1,000 ML IV SCH ×2 (05:26→12:27)
--- NOTE | 2021-05-27 05:47 | Obstetrical Progress Note ---
Date of Service <Sabas Ross DO - Last Filed: 05/27/21 07:06> May 27, 2021 Assessment & Plan <Sabas Ross DO - Last Filed: 05/27/21 07:06> (1) Encounter for care and examination after delivery: 35 yo post op day 1 from C/S due to hypertension, doing well. -Continue routine post care. - vital signs reviewed and WNL. (Tmax 37.1) -Blood type A-, GBS -, Rubella Immune -Encourage ambulation, monitor and control pain with Motrin, tylenol PRN, resume regular diet, monitor lochia. -encourage breast feeding. -hemoglobin 12.0 <Danielle Rivera MD - Last Filed: 05/27/21 08:22> (1) Encounter for care and examination after delivery: Subjective <Sabas Ross DO - Last Filed: 05/27/21 07:06> Ambulation: limited ambulation Voiding: chung catheter in place Passing Gas:: Yes Diet Tolerance:: clear liquids Lochia:: Small Feeding Type:: breast feeding Current Pain Level(1-10): 2 Review of Systems Denies fever, chills, sweats Denies shortness of breath, difficulty breathing, chest pain, palpitations, chest pressure. Denies breast pain. Denies dysuria. Denies headache or changes in vision Physical Exam <Sabas Ross DO - Last Filed: 05/27/21 07:06> General: Alert, oriented. No acute distress. Cardiac: Regular rate and rhythm, no murmurs/rubs/gallops. Respiratory: Clear to auscultation bilaterally a/p, no wheezes/rales/rhonchi. No increased work of breathing. Symmetrical chest rise. No respiratory distress. Abdomen: Soft, nontender, nondistended. Bowel sounds present. Uterus: Uterine fundus firm, palpable at umbilicus. Pads at incision site dry and without surrounding erythema. Lower Extremities: No lower extremity edema or swelling. No deep calf pain. Sanchez's negative bilaterally Results & Data ([facility]) <Sabas Ross DO - Last Filed: 05/27/21 07:06> Vital Signs (Past 12 Hours) Vital Signs Temp Pulse Pulse Resp BP BP Pulse Ox 05/27/21 05:00 18 95 05/27/21 04:00 36.8 C 93 H 18 137/87 95 05/27/21 03:00 18 96 05/27/21 02:35 98 H 154/100 H 05/27/21 02:00 18 100 05/27/21 00:54 18 99 05/27/21 00:15 37 C 88 18 152/84 H 96 05/26/21 23:54 18 97 05/26/21 23:00 18 97 05/26/21 21:50 37 C 92 H 18 143/92 H 96 05/26/21 21:23 88 97 05/26/21 21:18 85 142/82 H 97 05/26/21 21:16 93 H 159/96 H 05/26/21 21:13 75 96 05/26/21 21:08 108 H 98 05/26/21 21:07 36.7 C 18 05/26/21 21:06 85 156/79 H 05/26/21 21:03 81 97 05/26/21 21:00 88 172/81 H 05/26/21 20:58 106 H 96 05/26/21 20:57 117 H 201/91 H 05/26/21 20:53 76 96 05/26/21 20:48 69 97 05/26/21 20:46 72 135/70 05/26/21 20:43 86 97 05/26/21 20:38 74 97 05/26/21 20:37 83 18 135/65 05/26/21 20:33 74 98 05/26/21 20:28 69 97 05/26/21 20:26 68 136/81 05/26/21 20:23 76 98 05/26/21 20:18 75 98 05/26/21 20:16 74 141/80 H 05/26/21 20:13 70 98 05/26/21 20:10 77 87 L 05/26/21 20:08 79 98 05/26/21 20:07 18 05/26/21 20:06 74 152/88 H 05/26/21 20:03 71 99 05/26/21 19:58 73 99 05/26/21 19:57 18 05/26/21 19:56 69 160/90 H 05/26/21 19:53 75 98 01/24/22 19:48 73 100 05/26/21 19:47 82 18 158/90 H 05/26/21 19:43 79 99 05/26/21 19:38 77 99 05/26/21 19:37 18 05/26/21 19:36 75 143/79 H 05/26/21 19:33 83 100 05/26/21 19:28 83 100 05/26/21 19:27 18 05/26/21 19:26 81 147/71 H 05/26/21 19:23 87 99 05/26/21 19:18 88 100 05/26/21 19:17 18 05/26/21 19:16 84 135/69 05/26/21 19:13 91 H 100 05/26/21 19:10 93 H 92 05/26/21 19:08 84 100 05/26/21 19:07 36.6 C 85 18 118/76 <Danielle Rivera MD - Last Filed: 05/27/21 08:22> Co-Signing Physician Notes Resident Physician Supervision Note: I interviewed and examined the patient. Discussed with Dr. Ross and agree with findings and plan as documented in the note. Any exceptions or clarifi cations are listed here: POD1 s/p rLTCS, doing well. VSS, mild range BPs overnight but pt was not feeling well at the time, normal on most recent check. Exam benign and wnl, dressing c/d/i. Continue routine pp care, for chung removal and void today, remove dressing in shower. Continue to monitor BPs Documented By: Danielle Rivera MD Resident Activity Tracking <Sabas Ross DO - Last Filed: 05/27/21 07:06> Resident Involvement: Resident Care Provided Care Provided: OB Delivery
[2021-05-27 06:48] LABS: Basophils # (auto) 0.02 K/uL (0-0.2); Basophils % (auto) 0.2 %; Eosinophils # (auto) 0.02 K/uL (0-0.5); Eosinophils % (auto) 0.2 %; Hematocrit (blood only) 35.3 % (37-47); Immature Granulocytes # (auto) 0.01 K/uL (0.00-0.02); Immature Granulocytes % (auto) 0.1 %; Lymphocytes # (auto) 1.24 K/uL (1.2-3.4); Lymphocytes % (auto) 13.4 %; Mean Corpuscular Hemoglobin 29.1 pg (25-34); Mean Corpuscular Volume 85.7 fL (80-100); Mean Platelet Volume 12.8 fL (7.4-10.4); Monocytes # (auto) 0.83 K/uL (0.11-0.59); Neutrophils # (auto) 7.14 K/uL (1.4-6.5); Neutrophils % (auto) 77.1 %; Platelet Count 131 K/uL (130-400); RDW Coefficient of Variation 13.9 % (11.5-14.5); RDW Standard Deviation 43.5 fL (36.4-46.3); Red Blood Count 4.12 M/uL (4.2-5.4); White Blood Count 9.26 K/uL (4.8-10.8)
[2021-05-27] MEDS: DOCUSATE SODIUM 100 MG CAP PO SCH ×2 (09:05→21:30)
[2021-05-27] MEDS: SIMETHICONE 80 MG CHEW PO SCH ×4 (09:05→21:30)
[2021-05-27] MEDS: PRENATAL VITAMIN 1 TAB PO SCH (09:05)
[2021-05-27] MEDS: FERROUS SULFATE 325 MG TAB PO SCH (09:05)
[2021-05-27] MEDS ORDERED: ONDANSETRON INJ 2 MG/ML 2 ML VIAL IV PRN (12:03)
[2021-05-27] MEDS ORDERED: diphenhydrAMINE Capsule 25 MG CAP PO PRN (12:03)
[2021-05-27] MEDS ORDERED: PROMETHAZINE HCL 25 MG in SODIUM CHLORIDE 0.9% 50 ML IV PRN (12:03)
[2021-05-27] MEDS ORDERED: diphenhydrAMINE 50 MG/ML VIAL IV PRN (12:03)
[2021-05-27] MEDS ORDERED: KETOROLAC 30 MG/ML VIAL IV PRN (12:03)
[2021-05-27] MEDS: oxyCODONE/ACETAMINOPHEN 5mg/325mg TAB PO PRN ×2 (12:26→18:14)
[2021-05-27] MEDS: IBUPROFEN 600 MG TAB PO PRN ×2 (12:26→18:14)
[2021-05-27] MEDS ORDERED: bisacodyL 5 MG TABEC PO SCH (20:00)
[2021-05-28] MEDS: IBUPROFEN 600 MG TAB PO PRN ×4 (00:12→16:12)
[2021-05-28] MEDS: oxyCODONE/ACETAMINOPHEN 5mg/325mg TAB PO PRN ×4 (00:13→16:12)
--- NOTE | 2021-05-28 06:24 | Obstetrical Progress Note ---
Date of Service <Sabas Ross DO - Last Filed: 05/28/21 07:15> May 28, 2021 Assessment & Plan <DO Vangie Frances Last Filed: 05/28/21 07:15> (1) Encounter for care and examination after delivery: 35 yo post op day 2 from C/S due to hypertension, doing well. -Continue routine post care. -vital signs reviewed and WNL. (Tmax 37.1) -Blood type A-, GBS -, Rubella Immune -Encourage ambulation, monitor and control pain with Motrin, tylenol PRN, resume regular diet, monitor lochia. -encourage breast feeding. -Discussed discharge with patient. Patient stated she would like to go home today. Went over discharge instructions with patient and patient will follow up in [address] Rivera. <Sakshi Chen, - Last Filed: 05/28/21 07:45> (1) Encounter for care and examination after delivery: Subjective <DO Vangie Frances Last Filed: 05/28/21 07:15> Ambulation: ambulating normally Voiding: no voiding problems Passing Gas:: Yes Diet Tolerance:: regular diet Lochia:: Small Feeding Type:: breast feeding Current Pain Level(1-10): 0 Review of Systems Denies fever, chills, sweats Denies shortness of breath, difficulty breathing, chest pain, palpitations, chest pressure. Denies breast pain. Denies dysuria. Denies headache or changes in vision Physical Exam <DO Vangie Frances Last Filed: 05/28/21 07:15> General: Alert, oriented. No acute distress. Cardiac: Regular rate and rhythm, no murmurs/rubs/gallops. Respiratory: Clear to auscultation bilaterally a/p, no wheezes/rales/rhonchi. No increased work of breathing. Symmetrical chest rise. No respiratory distress. Abdomen: Soft, nontender, nondistended. Bowel sounds present. Uterus: Uterine fundus firm, palpable 2 cm below umbilicus. Surgical scar clean and healing well. Lower Extremities: No lower extremity edema or swelling. No deep calf pain. Sanchez's negative bilaterally Results & Data ([facility]) <Sabas Ross DO - Last Filed: 05/28/21 07:15> Vital Signs (Past 12 Hours) Vital Signs Temp Pulse Resp BP 05/27/21 22:30 37.0 C 90 18 121/81 05/27/21 20:20 37.0 C 85 18 133/88 <Sakshi Chen, - Last Filed: 05/28/21 07:45> Co-Signing Physician Notes Resident Physician Supervision Note: I interviewed and examined the patient. Discussed with Dr. Ross and agree with findings and plan as documented in the note. Any exceptions or clarifications are listed here: POD#2 doing well, DC home today. Reviewed instructions, followup in office 6w. Rx percocet #20 tabs. Documented By: Sakshi Chen DO Resident Activity Tracking <Sabas Ross DO - Last Filed: 05/28/21 07:15> Resident Involvement: Resident Care Provided Care Provided: OB Delivery
[2021-05-28] MEDS: SIMETHICONE 80 MG CHEW PO SCH ×3 (07:23→17:03)
[2021-05-28] MEDS: DOCUSATE SODIUM 100 MG CAP PO SCH (07:24)
[2021-05-28] MEDS: FERROUS SULFATE 325 MG TAB PO SCH (07:25)
[2021-05-28] MEDS: PRENATAL VITAMIN 1 TAB PO SCH (07:25)
[2021-05-28] MEDS ORDERED: bisacodyL 10 MG SUPP PR PRN (19:07)
--- NOTE | 2021-05-30 08:21 | Discharge Summary ---
Date of Service May 30, 2021 Admission HPI Per Admitting Provider 35 year old 38 weeks 2 days confirmed via LMP. Here for blood pressure check and complaint of RUQ pain. Patient was seen in the office earlier today with an elevated blood pressure of 142/90. Patient also had complaint of RUQ pain around her anterior inferior right ribs. Pain is a dull ache, worse with motion and deep breaths, without radiation. Denies any headaches, changes in vision, nausea, vomiting, fevers, chills. Complications with this include insulin controlled GDM, need for rhogam due to Rh negative. Patient attended OB appointments regularly. Patient takes home insulin and vit lyle. Contractions: Sporadic. Fluid or blood: Denies Movement: Present Discharge Data Consultations 05/26/21 13:30 Consult Anesthesiology Stat Procedures Performed Operation Date: 05/26/21 13:45 Actual Procedures p Repeat Low TransverseCesarean Section in OR#3 for live female at 1818. - Danielle Rivera MD Hospital Course (1) Insulin controlled gestational diabetes mellitus (GDM) during : (2) Pre-eclampsia: 35 y/o at 38 2/7 wga presented to labor and delivery for elevated blood pressures. BP was elevated at 05/23 visit and was seen on L&D where labs and BP were reassuring and discharged home. BP check today in office was again mild range and she also noted some RUQ soreness so was sent to L&D for monitoring. On arrival, she had normal PET bloodwork in the setting of known elevated urine protein. During monitoring, she continued to have mild range blood pressures and met criteria for pre-eclampsia w/o severe features with her BPs and elevated urine protein. Given her GA, she was recommended for delivery. See operative report for details. Her postoperative course was uncomplicated and was stable for discharge home on POD2 Coding Level of Care Code None Diagnoses Insulin controlled gestational diabetes mellitus (GDM) during O24.414 Pre-eclampsia O14.90
== END 2021-05-28 18:24 | disposition home or self-care (01) | DRG 788 ==
LOC: OPB 10:30 → 4S1 10:37 → 4S2 21:41